=== PATIENT | male | born 1960 | race Caucasian/White ===

== ENCOUNTER 2017-09-22 10:32 | Emergency (ER) | payer OTHER ==
[~2017-09-22] VITALS: Ht 162.6 cm; Wt 75.0 kg
[~2017-09-22 10:32] MED LIST: BABY ASPIRIN81 MG OR; BLOOD PRESSURE MED; CORTISPORIN OP7.5 ML OP; CRESTOR10 MG PO; FIBER625 MG PO; FLOXIN OTIC0.3 % OT; LISINOP/HCTZ1 TA2 PO; LOPID600 MG PO; LORTAB5 OR; MAXALT10 MG PO; OMEGA 31000 MG PO; PATANOL0.1 % OP; RED YEAST RICE EXTRA PO; ZYMAR OP
[2017-09-22] MEDS ORDERED: KEFLEX500 M1 PO (11:17)
[2017-09-22 11:51] VITALS: BP 109/79
== END 2017-09-22 11:51 | disposition home or self-care (01) | DRG 605 ==
LOC: ED 10:32
PROC: 0HQGXZZ Repair Left Hand Skin, External Approach (ICD-10-PCS; principal; 2017-09-22)
DX: S61.012A Laceration without foreign body of left thumb without damage to nail, initial encounter (principal); W26.0XXA Contact with knife, initial encounter; Y93.K9 Activity, other involving animal care; Y92.79 Other farm location as the place of occurrence of the external cause